=== PATIENT | male | born 1945 | race Caucasian/White ===

== ENCOUNTER 2017-01-14 04:27 | Inpatient (IN) | payer MEDICARE, BC ==
[2017-01-01 13:58] LABS: BASOPHILS 0.2 %; BASOPHILS ABSOLUTE 0.01 10/3/uL (0.0-0.16); EOSINOPHILS 1.2 %; EOSINOPHILS ABSOLUTE 0.08 10/3/uL (0.0-0.53); HEMOGLOBIN 15.1 g/dL (13.6-17.8); IMMATURE GRANULOCYTES 0.2 %; IMMATURE GRANULOCYTES ABSOLUTE 0.01 10/3/uL (0.0-0.11); LYMPHOCYTES 18.3 %; LYMPHOCYTES ABSOLUTE 1.18 10/3/uL (0.67-4.30); MEAN CORPUS HGB CONC 32.8 g/dL (32.0-36.0); MEAN CORPUSCULAR HEMOGLOB 28.1 pg (26.0-34.0); MEAN CORPUSCULAR VOLUME 85.8 fL (80-100); MEAN PLATELET VOLUME 10.4 fL (9.2-13.0); MONOCYTES 8.5 %; MONOCYTES ABSOLUTE 0.55 10/3/uL (0.21-1.20); NEUTROPHILS 71.6 %; NEUTROPHILS ABSOLUTE 4.62 10/3/uL (2.02-8.40); PLATELET COUNT 228 10/3/uL (150-400); RBC DISTRIBUTION WIDTH 14.6 % (12.0-16.0); RED CELL COUNT 5.37 10/6/uL (4.7-6.1); WHITE BLOOD CELLS 6.5 10/3/uL (4.5-10.5)
[2017-01-01 13:59] LABS: HEMATOCRIT 46.1 % (40.0-51.0); MANUAL DIFF NO %
[2017-01-01 14:03] LABS: PARTIAL THROMBO TIME 30.1 SEC (22.5-37.2); PROTIME (NOT ORD) 13.4 SEC (12.0-14.5)
[2017-01-01 14:11] LABS: ASCORBIC ACID (UR NOT ORDER) 40 (NEG); BILIRUBIN, URINE NEGATIVE (NEG); KETONE, URINE NEGATIVE (NEG); LEUKOCYTE ESTERASE(NOT OR NEG (NEG); WBC (NOT ORDERED) (RFLEX) 1 (0-5)
[2017-01-01 14:15] LABS: A/G RATIO 1.3 (0.7-1.9); ALBUMIN 3.8 G/DL (3.5-5.0); ALKALINE PHOSPHATASE 56 U/L (45-117); BUN (BLOOD UREA NITROGEN) 15 MG/DL (6-23); CALCIUM, SERUM 9.1 MG/DL (8.5-10.4); CHLORIDE, SERUM 102 MMOL/L (96-112); CO2 (CARBON DIOXIDE) 27 MMOL/L (24-34); CREATININE 1.07 MG/DL (0.70-1.30); GFR AFRICAN AMERICAN 82 ML/MIN (>=60); GFR NON AFRICAN AMERICAN 70 ML/MIN (>=60); GLUCOSE, SERUM 159 MG/DL (60-99); POTASSIUM, SERUM 4.3 MMOL/L (3.5-5.3); SGOT(AST) 28 U/L (5-40); SGPT(ALT) 26 U/L (5-65); SODIUM, SERUM 139 MMOL/L (135-148); TOTAL BILIRUBIN 0.7 MG/DL (0-1.2); TOTAL PROTEIN 6.8 G/DL (6.0-8.5)
--- NOTE | ~2017-01-14 | OP ---
Record Of Operation [facility] [address] [place]. [address] NAME: MINDY DE SR : 47 STATUS : ADM IN PAT#: [id number] AGE: 71 ADM/REG DATE : 01/14/17 MR#: [id number] REPORT SERV DATE: 01/14/17 DICTATED BY: LYN BEST DATE: 01/14/17 REPORT STATUS : Draft TRANSCRIBED BY: MODL DATE: 01/14/17 DATE OF PROCEDURE: 01/14/2017 PREOPERATIVE DIAGNOSIS: Left knee arthritis with varus. POSTOPERATIVE DIAGNOSIS: Left knee arthritis with varus. PROCEDURE PERFORMED: Left total knee arthroplasty. SURGEON: Lyn Best M.D. CUSTODIAL SERVICES MANAGER: Lee Ann Bermudez. ANESTHESIA: Spinal with sedation, adductor block, and local infusion. PROCEDURE IN DETAIL: The patient is clearly identified and after obtaining informed consent is brought to the operating room at [facility] where anesthesia is induced uneventfully with excellent anesthetic effect. Subsequently, the affected extremity is prepped and draped in the usual manner and after an appropriate time-out procedure is performed, via an anterior approach, the skin is divided, fascial planes are elevated, paramedial approach to the knee is made. The structures themselves are elevated, excised, and debrided were appropriate, whereupon the patella is carefully everted, calipered, and planed and with the size and type being reproduced with the appropriate-size patella, trialing is performed successfully. At this point, the patella is then carefully subluxed laterally, the knee is flexed, osteophytes around the distal femur are removed, followed by the ACL being divided. The femoral canal is entered and vented, at which point with the intramedullary guide being utilized, the distal femoral cut is made. At this point, the tibia is carefully subluxed anteriorly. The surrounding soft tissues to the tibia are protected with Hohmann retractors, at which point the extramedullary guide is utilized to perform the proximal tibial cut and after cleansing these tissues, the spacer block is utilized in extension to confirm excellent extension, stability, and alignment. The guiding pins are then all carefully removed and the knee is then flexed. The femur is sized, whereupon the anterior, posterior, chamfer, and box cuts are made appropriately. The proximal tibia then is assessed. Osteophytes and surrounding soft tissues are removed and debrided were appropriate. Posterior osteophytes are removed as well. The menisci are excised and thus concluding trialings performed successfully. The proximal tibia then is carefully prepared utilizing proper cement technique. The permanent implants have been carefully placed into position uneventfully where upon copious irrigations performed, the permanent tibial implants applied and thus concluded. The joint was then copiously irrigated, at which point it is closed carefully in layers including Vicryl and checo for the skin, at which point Aquacel sterile dressing is applied. The patient is allowed to awaken and is transferred to the bed and subsequently to the recovery room in stable condition having tolerated the procedure well. ESTIMATED BLOOD LOSS: 50. Record Of Operation [address] [place]. [address] NAME: MINDY DE SR : 47 STATUS : ADM IN [facility]#: [id number] AGE: 71 ADM/REG DATE : 01/14/17 MR#: [id number] REPORT SERV DATE: 01/14/17 DICTATED BY: LYN BEST DATE: 01/14/17 REPORT STATUS : Draft TRANSCRIBED BY: SHARRON DATE: 01/14/17 FLUIDS: 1000. TOURNIQUET TIME: 47 minutes. PATHOLOGY: Sent specimen. MICROBIOLOGY: None. COMPLICATIONS: None. SPONGE AND NEEDLE COUNTS: Reportedly correct. ANTIBIOTICS: Administered appropriately preoperatively and ordered to be discontinued within 23 hours. IMPLANTS: Attune knee by DePuy, femur 6, standard tibia 7, patella 38, polyethylene 6/8. MAUREEN/SHARRON Lyn Best M.D. / [id number] CC: Fidel Rainey D.O. F.A.C.P.
[~2017-01-14 04:27] MED LIST: ALPHAGAN OPH; ASAB PO; ATV.5 PO; ATV1 PO; AVALIDE1 TAB PO; AXIRON; BRIMONIDINE0.2 % OPH; COZ25 PO; COZ50 PO; COZAAR100 MG PO; GLUCOPHAGE1000 MG PO; GLUCPH PO; IMDUR30 PO; KAPIDEX60 MG PO; L20 PO; L40 PO; LOP25 PO; NEXIUM40 PO; NORV5 PO; PRILO PO; PROTONIX PO; RANITIDINE300 MG PO; TYLENOL COLD1 TA1 OR; VIAGRA100 MG PO
[2017-01-15 05:25] LABS: HEMATOCRIT 37.7 % (40.0-51.0); HEMOGLOBIN 12.4 g/dL (13.6-17.8)
[2017-01-15 05:30] LABS: INTERNATIONAL NORMAL RATI 1.2 UNITS (-)
[2017-01-15 05:47] LABS: CALCIUM, SERUM 8.1 MG/DL (8.5-10.4); CHLORIDE, SERUM 101 MMOL/L (96-112); CO2 (CARBON DIOXIDE) 26 MMOL/L (24-34); CREATININE 1.17 MG/DL (0.70-1.30); GFR AFRICAN AMERICAN 73 ML/MIN (>=60); GFR NON AFRICAN AMERICAN 63 ML/MIN (>=60); GLUCOSE, SERUM 148 MG/DL (60-99); POTASSIUM, SERUM 4.1 MMOL/L (3.5-5.3); SODIUM, SERUM 135 MMOL/L (135-148)
[2017-01-15 05:51] LABS: BUN (BLOOD UREA NITROGEN) 19 MG/DL (6-23)
[2017-01-15] MEDS ORDERED: OXYCOD PO (15:24)
[2017-01-15] MEDS ORDERED: C5 PO (15:25)
== END 2017-01-15 16:26 | disposition home or self-care (01) | DRG 470 ==
LOC: SDC/OF 04:27 → PACU 09:36 → 3JRC 11:41
PROVIDERS: Orthopaedic Surgery
PROC: 0SRD0J9 Replacement of Left Knee Joint with Synthetic Substitute, Cemented, Open Approach (ICD-10-PCS; principal; 2017-01-14 06:30)
DX: M17.12 Unilateral primary osteoarthritis, left knee (principal); I10 Essential (primary) hypertension; E11.9 Type 2 diabetes mellitus without complications; F41.9 Anxiety disorder, unspecified; I25.10 Atherosclerotic heart disease of native coronary artery without angina pectoris; Z95.1 Presence of aortocoronary bypass graft
CPT/HCPCS: 36415; 71020; 80048; 80053; 81001; 85014; 85018; 85025; 85610; 85730; 86850; 86900; 86901; 87641; 88305; 88311; 93005; 97110-GP; 97116-GP; 97150-GP; 97161-GP; 97165-GO; A9270-GY; C1776; G8978-CK-GP; G8979-CI-GP; J0360; J0690; J1885; J2250; J2274; J2405; J2795; J3010